=== PATIENT | female | born 1980 | race Caucasian/White ===

== ENCOUNTER 2017-08-18 13:46 | Emergency (ER) | payer BC ==
[2017-08-18 15:19] LABS: ADD MAN DIFF? NO
[2017-08-18 15:28] LABS: ABNORMAL IP MESSAGE 1; BASOPHIL # 0.1 10^3/ul (0.0-0.1); BASOPHILS % 0.6 % (0.0-2.0); EOSINOPHILS # 0.1 10^3/ul (0.0-0.5); EOSINOPHILS % 1.6 % (0.0-7.0); HEMATOCRIT 34.2 % (37.0-47.0); HEMOGLOBIN 9.7 g/dl (12.0-16.0); LYMPHOCYTES # 1.9 10^3/ul (0.8-2.9); LYMPHOCYTES % 22.6 % (15.0-51.0); MEAN CORPUSCULAR HEMOGLOBIN 21.2 pg (29.0-33.0); MEAN CORPUSCULAR HGB CONC 28.4 g/dl (32.0-37.0); MEAN CORPUSCULAR VOLUME 74.8 fl (82.0-101.0); MEAN PLATELET VOLUME 8.9 fl (7.4-10.4); MONOCYTE # 0.5 10^3/ul (0.3-0.9); NEUTROPHIL # 5.7 10^3/ul (1.6-7.5); NEUTROPHILS % 68.6 % (39.0-77.0); PLATELET COUNT 436 10^3/UL (140-415); RED BLOOD COUNT 4.57 10^6/ul (4.20-5.40)
[2017-08-18 15:28] LABS: WHITE BLOOD COUNT 8.4 10^3/ul (4.8-10.8)
[2017-08-18 15:38] LABS: ALANINE AMINOTRANSFERASE 44 IU/L (13-69); ALBUMIN 4.9 g/dl (3.3-4.9); ALBUMIN/GLOBULIN RATIO 1.25; ALKALINE PHOSPHATASE 73 IU/L (42-121); ANION GAP 16 (8-16); ASPARTATE AMINO TRANSFERASE 28 IU/L (15-46); BILIRUBIN,INDIRECT 0.2 mg/dl (0-1.1); BILIRUBIN,TOTAL 0.2 mg/dl (0.2-1.3); BLOOD UREA NITROGEN 12 mg/dl (7-20); CALCIUM 9.4 mg/dl (8.4-10.2); CARBON DIOXIDE 26 mmol/L (21-31); CHLORIDE 102 mmol/L (97-110); CREATININE 0.63 mg/dl (0.44-1.00); GLUCOSE 82 mg/dl (70-220); LIPASE 59 U/L (23-300); POTASSIUM 4.2 mmol/L (3.5-5.1); SODIUM 140 mmol/L (135-144); TOTAL PROTEIN 8.8 g/dl (6.1-8.1)
[2017-08-18 15:39] LABS: POSITIVE DIFF @See below
[2017-08-18 15:40] LABS: ADD UMIC NO; UR ASCORBIC ACID 40 mg/dL (NEGATIVE); UR BACTERIA FEW /HPF (NONE SEEN); UR BILIRUBIN (Dip) NEGATIVE (NEGATIVE); UR BLOOD (Dip) NEGATIVE (NEGATIVE); UR CLARITY SLIGHTLY CLOUDY (CLEAR); UR COLOR YELLOW (YELLOW); UR GLUCOSE (Dip) NEGATIVE (NEGATIVE); UR KETONES (Dip) NEGATIVE (NEGATIVE); UR LEUKOCYTE ESTERASE (Dip) NEGATIVE Leu/ul (NEGATIVE); UR MUCUS FEW /HPF (NONE SEEN); UR NITRITE (Dip) NEGATIVE (NEGATIVE); UR RBC 1 /HPF (0-5); UR SPECIFIC GRAVITY (Dip) 1.023 (1.003-1.030); UR SQUAMOUS EPITHELIAL CELL FEW /HPF (FEW); UR TOTAL PROTEIN (Dip) NEGATIVE (NEGATIVE); UR UROBILINOGEN (Dip) NEGATIVE (NEGATIVE); UR WBC 1 /HPF (0-5)
[2017-08-18 15:53] LABS: TROPONIN-I < 0.012 ng/ml (0.00-0.12)
== END 2017-08-18 16:11 | disposition home or self-care (01) ==
LOC: E/R 16:11
DX: D64.9 Anemia, unspecified (principal); I10 Essential (primary) hypertension; F17.210 Nicotine dependence, cigarettes, uncomplicated
CPT/HCPCS: 36415; 80053; 81001; 81003; 83690; 84484; 85025; 86850; 86870; 86900; 86901; 93005; 99284-25